=== PATIENT | female | born 2000 | race African-American/Black ===

== ENCOUNTER 2022-08-11 18:08 | Observation (INO) | payer MEDICAID ==
[~2022-08-11] VITALS: Ht 165.1 cm; Wt 72.6 kg
[2022-08-11] MEDS ORDERED: ACETAMINOPHEN 500MG TABLET PO NR (19:30)
[2022-08-11] MEDS ORDERED: LACTATED RINGERS 1,000 ML IV ONE (19:30)
[2022-08-11 20:47] LABS: BASOPHILS % 0.1 % (0.0-2.0); CHLORIDE 109 mEq/L (98-107); HEMATOCRIT. 36.1 % (36.0-48.0); LYMPHOCYTES % 13.3 % (20.0-50.0); MEAN CORPUSCULAR HEMOGLOBIN 28.5 pg (28.0-32.0); MEAN CORPUSCULAR VOLUME 85.7 fL (81.0-99.0); MEAN PLATELET VOLUME 10.7 fl (7.4-10.4); MONOCYTES % 4.2 % (2.0-8.0); NEUTROPHILS % 82.4 % (40.0-76.0); PLATELET 131 x1000/uL (130-400); RED BLOOD CELL COUNT 4.21 mill/uL (4.2-5.4)
[2022-08-11 20:50] LABS: CLARITY URINE CLEAR (CLEAR); COLOR URINE YELLOW (YELLOW); KETONES URINE 2+ (NEGATIVE); LEUKOCYTE ESTERASE URINE NEGATIVE (NEGATIVE); NITRITE URINE NEGATIVE (NEGATIVE); OCCULT BLOOD URINE NEGATIVE (NEGATIVE); PH URINE 7.5 (4.5-8.0); PROTEIN URINE NEGATIVE (NEGATIVE); SPECIFIC GRAVITY URINE 1.008 (1.005-1.030)
[2022-08-11] MEDS ORDERED: PANTAPRAZOLE (20:55)
[2022-08-11] MEDS ORDERED: ASPI-1497 PO (20:55)
[2022-08-11] MEDS ORDERED: PREN1TAB78 PO (20:55)
[2022-08-11] MEDS ORDERED: VALTREX (21:18)
[2022-08-11 21:22] LABS: D-DIMER 4.11 mg/L FEU (<0.50); INR 0.9; PROTHROMBIN TIME 10.2 sec (9.6-11.0)
== END 2022-08-11 22:00 | disposition home or self-care (01) ==
LOC: 8 EST LDRP 18:08
PROVIDERS: ADMIT Specialist; ATTEND Specialist
DX: O26.893 Other specified pregnancy related conditions, third trimester (principal); R51.9 Headache, unspecified; R10.30 Lower abdominal pain, unspecified; H53.8 Other visual disturbances; O62.9 Abnormality of forces of labor, unspecified; Z3A.33 33 weeks gestation of pregnancy; Z79.899 Other long term (current) drug therapy
CPT/HCPCS: 36415; 59025; 76805; 76818; 80053; 81003; 84550; 85025; 85379; 85384; 85610; 85730; 96360; 96361; G0378; 99281